=== PATIENT | female | born 1955 | race Caucasian/White ===

== ENCOUNTER 2019-01-26 08:30 | Emergency (ER) | payer SELFPAY ==
[2019-01-26 08:35] VITALS: BP 157/91; PULSE 71; RESP 18; TEMP 36.8; O2SAT 98; BMI 32.8
[2019-01-26 08:58] VITALS: BP 157/91; PULSE 70; RESP 16; TEMP 36.8; O2SAT 97
--- NOTE | 2019-01-26 09:07 | ED_ITS ---
HPI - Nausea/Vomiting/Diarrhea General Chief complaint: Nausea/Vomiting/Diarrhea Stated complaint: vomiting,dizzy,nausea day 3 Time Seen by Provider: 01/26/19 08:41 Source: patient and family Mode of arrival: Family Vehicle Limitations: no limitations History of Present Illness HPI Narrative: Patient comes emergency department with her complaining dizziness nausea vomiting for the last 2 days. Patient states that she had awakened in the morning 2 days ago and that about an hour after waking up, she began to notice the vertigo all of a sudden. Patient states that she has never had symptoms to this degree before. She states that occasionally when she gets up in the morning, she will have a brief period of less severe vertigo, but that it always goes away on its own fairly quickly. Patient denies any other neurologic symptoms. No weakness, visual changes, difficulty speaking or swallowing, or sensory deficits. No tinnitus. No ear pain or headache. Patient denies fevers or other symptoms of illness recently. She was feeling fine before the dizziness started. She denies lightheadedness, chest pain, or shortness of breath. She states that the sensation is worse with movement or position change, and that closing her eyes makes it somewhat better. No other complaints at this time. Related Data Home Medications Medication Instructions Recorded Confirmed LORATADINE/PSEUDOEPHEDRINE 1 tab PO QDAY #0 02/08/12 (Claritin-D 24 Hour Tablet) ibuprofen 200 mg PO HS #0 02/08/12 Previous Rx's Medication Instructions Recorded meclizine 25 mg PO TID PRN #20 tab 01/26/19 ondansetron 4 mg PO Q6H PRN #20 tab 01/26/19 Allergies Allergy/AdvReac Type Severity Reaction Status Date / Time TREE POLLEN Allergy Mild ITCHY EYES Uncoded 01/26/19 08:58 Review of Systems Constitutional Constitutional: Denies chills, Denies fatigue, Denies fever(s), Denies frequent falls, Denies lethargy and Denies weakness Eyes Eyes: Denies change in vision, Denies eye discharge, Denies irritation and Denies loss of vision ENT Ears, Nose, Mouth, and Throat: Denies change in voice, Reports dizziness, Denies neck pain, Denies sore throat and Denies throat swelling Cardiovascular Cardiovascular: Denies chest pain, Denies irregular heart rhythm, Denies lightheadedness, Denies palpitations, Denies dyspnea, Denies dyspnea on exertion and Denies orthopnea Respiratory Respiratory: Denies cough, Denies dyspnea, Denies dyspnea on exertion and Denies wheezing Gastrointestinal Gastrointestinal: Denies abdominal pain, Denies change in bowel habits, Denies diarrhea, Reports nausea and Reports vomiting Genitourinary Genitourinary: Denies hematuria, Denies flank pain, Denies urinary incontinence and Denies urinary urgency Musculoskeletal Musculoskeletal: Denies back pain, Denies muscle weakness, Denies neck pain, Denies numbness and Denies tingling Integumentary/Breasts Skin/Breast: Denies pruritus, Denies erythema, Denies rash and Denies wounds Neurologic Neurologic: Denies behavioral changes, Denies confusion, Reports dizziness, Denies frequent falls, Denies loss of vision, Denies numbness, Denies tingling and Denies weakness Psychiatric Psychiatric: Denies anxiety, Denies behavioral changes, Denies confusion, Denies depression, Denies homicidal ideation and Denies suicidal ideation Endocrine Endocrine: Denies fatigue, Denies flushing and Denies palpitations Hematologic/Lymphatic Hematologic/Lymphatic: Denies easy bruising Allergic/Immunologic Allergic/Immunologic: Denies urticaria, Denies throat swelling and Denies wheezing Patient History Medical History Allergy (Acute) Social History Smoking Status: Never smoker alcohol intake frequency: 0-2 drinks per day Substance Use Type: does not use Exam Initial Vital Signs Initial Vital Signs: Vital Signs Temperature 98.3 F 01/26/19 08:35 Pulse Rate 71 01/26/19 08:35 Respiratory Rate 18 01/26/19 08:35 Blood Pressure 157/91 H 01/26/19 08:35 Pulse Oximetry 98 01/26/19 08:35 Const General: cooperative and well developed Nutritional Appearance: well nourished Orientation: alert, awake, oriented x3 and not confused Other: Patient appears uncomfortable and sits with her eyes closed. She appears to be minimizing movement of her head and body. HENIN Head: normocephalic and atraumatic Ears: external ears normal Nose: external nose normal and No nasal discharge Face and sinus: face symmetric and No dry mucous membranes Mouth: oral mucosae normal and moist mucous membranes Teeth and gingiva: dentition normal Eyes General: appearance normal, both eyes and all related structures Eyelids: eyelids normal Conjunctivae: conjunctivae normal Sclera: sclerae normal Pupils: PERRL EOM: EOM intact bilaterally Neck Neck: normal visual inspection, trachea midline, No lymphadenopathy, No midline deformity and No JVD Lymphatic: No lymphedema Chest Chest: normal inspection of the chest Resp Effort & Inspection: normal respiratory effort, able to speak in complete sentences, no respiratory distress and no use of accessory muscles Auscultation: clear to auscultation bilaterally, no rales, no rhonchi and no wheezes Cardio Rate: regular rate Rhythm: regular rhythm Heart Sounds: no click, no gallops, no murmurs and no rubs Pulses: normal peripheral pulses GI Inspection: non-distended Palpation: soft, no hepatosplenomegaly, No guarding, No pulsatile mass and No tender Back/Spine/Pelvis Back: No CVA tenderness Cervical Spine: cervical ROM normal and No pain with cervical ROM Thoracic/Lumbar Spine: thoracic and lumbar spine normal to inspection Skin General: no rashes or lesions noted, No jaundice and No petechiae Neuro General: alert, awake, oriented x3, no focal motor deficits and CN's II-XI intact bilaterally Cognition: normal cognition Speech: speech normal Motor: muscle tone normal throughout Sensory Exam: no sensory deficits noted Extrem General: full ROM, no clubbing, cyanosis or edema, no pedal edema and no calf tenderness Psych Appearance: well kempt Mental Status: mental status grossly normal Attitude: cooperative Thought Content: normal and suicidality Judgment: judgment good Course Course Course Narrative: The patient's symptoms were most consistent with a peripheral etiology of her vertigo. However, given that the patient had not had significant vertigo previously and that her symptoms were quite severe and long- lasting, I did work her up with labs, EKG, and CT scan of the head. She was treated with IV fluids, Zofran, and Valium, after which she was found to be feeling quite a bit better. Her workup was unremarkable. I discussed with the patient that she most likely have a peripheral source of her vertigo, and as such, her symptoms would be expected to be self-limited. I will prescribe her meclizine, which she may take as needed, and she is advised to follow up her primary care physician. Orders Ordered: Discontinued Medications Diazepam (Valium) 5 mg IV NOW ONE Stop: 01/26/19 09:13 Last Admin: 01/26/19 09:22 Dose: 5 mg Documented by: MAYA Sodium Chloride (Normal Saline 0.9%) 1,000 mls @ 1,000 mls/hr IV BOLUS ONE Stop: 01/26/19 10:06 Last Infusion: 01/26/19 11:04 Dose: 0 mls/hr Documented by: Admin: 01/26/19 09:22 Dose: 1,000 mls/hr Documented by: MAYA Meclizine HCl (Antivert) 50 mg PO NOW ONE Stop: 01/26/19 10:42 Last Admin: 01/26/19 11:05 Dose: 50 mg Documented by: MAYA Ondansetron HCl (Zofran) 4 mg IV NOW ONE Stop: 01/26/19 09:08 Last Admin: 01/26/19 09:22 Dose: 4 mg Documented by: MAYA Vital Signs Vital signs: Vital Signs - 8 hr 01/26/19 08:35 01/26/19 08:58 Temperature 98.3 F 98.3 F Pulse Rate 71 70 Respiratory Rate 18 16 Blood Pressure 157/91 H Blood Pressure [Right Arm] 157/91 H Pulse Oximetry 98 97 MDM - Nausea/Vomiting/Diarrhea Medical Records Attestation: I reviewed the patient's medical records. Lab Data Attestation: I reviewed the patient's lab results. Result diagrams: 01/26/19 09:15 01/26/19 09:15 Labs: Lab Results 01/26/19 01/26/19 Range/Units 09:15 09:15 WBC 11.0 (4.5-11.0) X10^3/uL RBC 4.88 (4.0-5.2) X10^6/uL Hgb 14.2 (12.0-16.0) g/dL Hct 41.3 (36-46) % MCV 84.6 (80-100) fL MCH 29.2 (26-34) PG MCHC 34.5 (30-36) % RDW 14.0 (11.6-14.8) % Plt Count 276 (150-400) X10^3/uL Neut % (Auto) 82.9 H (50-75) % Lymph % (Auto) 11.2 L (25-40) % [place] % (Auto) 5.3 (3-14) % Eos % (Auto) 0.4 L (2-4) % Baso % (Auto) 0.2 (0-2) % Neut # (Auto) 9100 H (6302-1699) /uL Lymph # (Auto) 1200 (1553-7075) /uL [place] # (Auto) 600 (0-900) /uL Eos # (Auto) 0 (0-450) /uL Baso # (Auto) 0 (0-100) /uL Sodium 140 (137-145) mmol/L Potassium 4.2 (3.4-5.1) mmol/L Chloride 102 (98-107) mmol/L Carbon Dioxide 27 (22-32) mmol/L BUN 18 H (7-17) mg/dL Creatinine 0.90 (0.52-1.04) mg/dL Estimated GFR > 60.0 (>60) mL/min BUN/Creatinine Ratio 20.0 (6-22) Glucose 111 H (80-110) mg/dL Calcium 10.4 H (8.4-10.2) mg/dL Total Bilirubin 0.9 (0.2-1.3) mg/dL AST 24 (14-36) IU/L ALT 18 (<35) IU/L Alkaline Phosphatase 124 (38-126) U/L Total Protein 8.0 (6.3-8.2) g/dL Albumin 4.6 (3.5-5.0) g/dL Globulin 3.4 (1.7-4.1) g/dL Albumin/Globulin Ratio 1.4 (1.0-2.8) Imaging Data CT scan - head: Radiologist's impression: PROCEDURE: CT HEAD/BRAIN WO CON INDICATIONS: vertigo TECHNIQUE: Noncontrast 4.5 mm thick angled axial sections acquired from the foramen magnum to the vertex, with coronal and sagittal reformats. For radiation dose reduction, the following was used: automated exposure control, adjustment of mA and/or kV according to patient size. COMPARISON: None. FINDINGS: Image quality: Excellent. CSF spaces: Basal cisterns are patent. No extra-axial fluid collections. Ventricles are normal in size and shape. Brain: No intracranial hemorrhage, mass, or mass effect. [place]-white matter interface is preserved. Skull and face: Calvarium and visualized facial bones are intact, without suspicious lesions. Sinuses: Visualized sinuses and mastoids are clear. IMPRESSION: 1. No acute intracranial abnormality. Dictated by: Jeff Daniel M.D. on 01/26/2019 at 10:02 Approved by: Jeff Daniel M.D. on 01/26/2019 at 10:04 Discharge Plan Departure Patient Disposition: Home Clinical Impression: Benign paroxysmal positional vertigo Qualifiers: Laterality: unspecified laterality Qualified Code(s): H81.10 - Benign paro xysmal vertigo, unspecified ear Discharge Date/Time: 01/26/19 11:50 Instructions: DI for Benign Paroxysmal Positional Vertigo Activity Restrictions/Additional Instructions: Your labs and CT scan look good. There is no evidence of a serious or emergent condition causing your symptoms at this time. Most likely, your vertigo is caused by a temporary condition of your inner ear, which will resolve on its own. Please take the medicines for nausea and dizziness, as needed. Prescriptions: New meclizine 25 mg tablet 25 mg PO TID PRN (Reason: dizziness) Qty: 20 RF: 0 ondansetron 4 mg tablet,disintegrating 4 mg PO Q6H PRN (Reason: nausea and vomiting) Qty: 20 RF: 0 No Action ibuprofen 200 MG tablet 200 mg PO HS Qty: 0 RF: 0 LORATADINE/PSEUDOEPHEDRINE (Claritin-D 24 Hour Tablet) 1 tab PO QDAY Qty: 0 RF: 0 Referrals: Wei James MD [Primary Care Provider] -
[2019-01-26] MEDS: SODIUM CHLORIDE 0.9% 1,000 ML 1000 ML IV (09:22)
[2019-01-26] MEDS: ONDANSETRON 4 MG/2 ML INJ IV (09:22)
[2019-01-26] MEDS: diazePAM 10 MG/2 ML SYRINGE 5 MG IV (09:22)
[2019-01-26 09:29] LABS: Add Manual Diff / Slide Review NO; Basophils Absolute Auto 0 /uL (0-100); Basophils Percent Auto 0.2 % (0-2); Eosinophils Absolute Auto 0 /uL (0-450); Eosinophils Percent Auto 0.4 % (2-4); Hematocrit 41.3 % (36-46); Hemoglobin 14.2 g/dL (12.0-16.0); Lymphocytes Absolute Auto 1200 /uL (1100-4500); Lymphocytes Percent Auto 11.2 % (25-40); Mean Corpuscular HGB Conc 34.5 % (30-36); Mean Corpuscular Hemoglobin 29.2 PG (26-34); Mean Corpuscular Volume 84.6 fL (80-100); Monocytes Absolute Auto 600 /uL (0-900); Monocytes Percent Auto 5.3 % (3-14); Neutrophils Absolute Auto 9100 /uL (1500-7000); Neutrophils Percent Auto 82.9 % (50-75); Platelet Count 276 X10^3/uL (150-400); Red Blood Cell Count 4.88 X10^6/uL (4.0-5.2)
[2019-01-26 09:39] LABS: Alanine Aminotransferase 18 IU/L (<35); Albumin 4.6 g/dL (3.5-5.0); Albumin Globulin Ratio 1.4 (1.0-2.8); Alkaline Phosphatase 124 U/L (38-126); Aspartate Aminotransferase 24 IU/L (14-36); Bilirubin Total 0.9 mg/dL (0.2-1.3); Blood Urea Nitrogen 18 mg/dL (7-17); Calcium 10.4 mg/dL (8.4-10.2); Carbon Dioxide 27 mmol/L (22-32); Chloride 102 mmol/L (98-107); Estimated Glomerular Filt Rate > 60.0 mL/min (>60); Globulin 3.4 g/dL (1.7-4.1); Glucose 111 mg/dL (80-110); HEMOLYSIS < 15 (0-50); Potassium 4.2 mmol/L (3.4-5.1); Sodium 140 mmol/L (137-145)
[2019-01-26 10:17] VITALS: BP 167/85; PULSE 60; RESP 18; O2SAT 99
[2019-01-26] MEDS: MECLIZINE HCL 12.5 MG TABLET 50 MG PO (11:05)
--- NOTE | 2019-01-26 11:15 | PC.NURSE ---
pt states she feels better when sitting up to take her pill.denies vertigo. dizziness
[2019-01-26 11:17] VITALS: BP 154/77; PULSE 62; RESP 16; O2SAT 99
== END 2019-01-26 11:50 | disposition home or self-care (01) ==
PROVIDERS: Emergency Provider Emergency Medicine; PCP Family Medicine
DX: H81.10 Benign paroxysmal vertigo, unspecified ear (principal)
CPT/HCPCS: 36415; 70450; 80053; 85025; 93005; 96361; 96374; 96375; 99283; 99284; J2405; J3360